=== PATIENT | male | born 1985 | race Hispanic/Latino ===

== ENCOUNTER 2023-12-21 14:54 | Inpatient (IN) | payer MEDICAID, SELFPAY ==
[~2023-12-21 14:54] MED LIST: Iopamidol-370 76% 500 ML MDV (1 ML CHARGE) ONE
[2023-12-21 16:11] LABS: #Basophils 0.03 10x3/uL (0.0-0.2); %Basophils 0.5 % (0.0-1.0); %Eosinophils 0.5 % (0.0-10.0); %Lymphocytes 30.9 % (21.0-51.0); %Monocytes 10.4 % (0.0-10.0); %Neutrophils 57.2 % (42.0-75.0); Hematocrit 12.3 % (42.0-52.0); Hemoglobin 3.7 g/dL (14.0-18.0); Mean Corpuscular HGB CONC 30.1 g/dL (32.0-36.0); Mean Corpuscular Hemoglobin 26.6 pg (27.0-31.0); Mean Corpuscular Volume 88.5 fL (78.0-98.0); Mean Platelet Volume 10.4 fL (7.4-10.4); Platelet Count 105 10x3/uL (130-400); RBC Distribution Width 21.9 % (11.5-14.5); Red Blood Cell (RBC) Count 1.39 mill/uL (4.70-6.10)
[2023-12-21 16:20] LABS: ALT (SGPT) 12 U/L (8-55); AST (SGOT) 47 U/L (5-34); Albumin 2.2 g/dL (3.5-5.0); Alkaline Phosphatase 82 U/L (40-110); Anion Gap 12 mmol/L (10-20); BUN (Urea Nitrogen) 11 mg/dL (8.9-20.6); Bilirubin, Total 2.6 mg/dL (0.2-1.2); Calc. Creatinine Clearance 0 mL/min (70-130); Calcium 7.6 mg/dL (7.8-10.44); Carbon Dioxide 20 mmol/L (22-29); Chloride 104 mmol/L (98-107); Estimated GFR 129; Globulin 4.3 g/dL (2.4-3.5); Glucose 121 mg/dL (70-105); Lipase 43 U/L (8-78); Potassium 3.8 mmol/L (3.5-5.1); Protein, Total 6.5 g/dL (6.0-8.3); Sodium 132 mmol/L (136-145)
[2023-12-21 16:22] LABS: Acetaminophen Less than 10 mcg/mL (Less than 10); Alcohol 132.6 mg/dL (Less than 10); Salicylate Less than 8.0 mg/dL (Less than 8.0)
[2023-12-21 16:27] LABS: INR-International Normal Ratio 1.8; Prothrombin Time 20.9 sec (12.0-14.7)
[2023-12-21 16:28] LABS: PTT 44.7 sec (22.9-36.1)
[2023-12-21] MEDS ORDERED: Pantoprazole 40 MG VIAL ONE (17:27)
[2023-12-21] MEDS ORDERED: Sodium Chloride 0.9% 100 ML ONE (17:27)
[2023-12-21] MEDS ORDERED: cefTRIAXone (ROCEPHIN) 1 GM VIAL ONE (17:27)
[2023-12-21] MEDS ORDERED: Ondansetron PF 4 MG/2 ML Vial ONE ×2 (17:27→19:52)
[2023-12-21] MEDS ORDERED: Etomidate 40 MG (20 mL) VIAL ONE (17:56)
[2023-12-21] MEDS ORDERED: Pantoprazole 80 MG, Admixture Fee 1 EACH in Sodium Chloride 0.9% 100 ML IVPB SCH (18:00)
[2023-12-21] MEDS ORDERED: SUCCINYLCHOLINE/SOD CL,ISO/PF 200 MG/10 ML SYRINGE FS ONE (18:24)
[2023-12-21] MEDS ORDERED: PROPOFOL 20 ML ONE ×2 (18:25→18:42)
[2023-12-21] MEDS ORDERED: Midazolam HCl 2 mg/2 ml Vial ONE (18:56)
[2023-12-21 19:48] LABS: #Basophils 0.05 10x3/uL (0.0-0.2); #Eosinphils Less than 0.03 10x3/uL (0.0-0.7); %Eosinophils 0.2 % (0.0-10.0); %Lymphocytes 25.3 % (21.0-51.0); %Monocytes 10.5 % (0.0-10.0); %Neutrophils 61.2 % (42.0-75.0); Hematocrit 18.2 % (42.0-52.0); Hemoglobin 5.5 g/dL (14.0-18.0); Mean Corpuscular HGB CONC 30.2 g/dL (32.0-36.0); Mean Corpuscular Hemoglobin 27.5 pg (27.0-31.0); Mean Platelet Volume 9.8 fL (7.4-10.4); Platelet Count 90 10x3/uL (130-400); RBC Distribution Width 18.6 % (11.5-14.5)
[2023-12-21 20:11] LABS: ALT (SGPT) 11 U/L (8-55); AST (SGOT) 47 U/L (5-34); Alkaline Phosphatase 73 U/L (40-110); Anion Gap 10 mmol/L (10-20); BUN (Urea Nitrogen) 10 mg/dL (8.9-20.6); Bilirubin, Total 2.9 mg/dL (0.2-1.2); Calc. Creatinine Clearance 0 mL/min (70-130); Calcium 7.1 mg/dL (7.8-10.44); Carbon Dioxide 19 mmol/L (22-29); Chloride 108 mmol/L (98-107); Estimated GFR 132; Globulin 3.8 g/dL (2.4-3.5); Glucose 92 mg/dL (70-105); Potassium 3.8 mmol/L (3.5-5.1); Protein, Total 5.8 g/dL (6.0-8.3); Sodium 133 mmol/L (136-145)
[2023-12-21 20:19] LABS: Macrocytosis SLIGHT = 6-15 cells HPF (0-5); Platelet Adequacy Comment Platelets Decreased; Polychromasia MODERATE = 3-4 cells HPF (0-2)
[2023-12-21] MEDS: Lactated Ringer's 1,000 ML IV SCH (22:15)
[2023-12-21] MEDS ORDERED: Acetaminophen 650 MG Suppository PR PRN (23:21)
[2023-12-21] MEDS ORDERED: Ondansetron PF 4 MG/2 ML Vial IVP PRN (23:21)
[2023-12-21] MEDS ORDERED: Lorazepam 1 MG TAB PO PRN (23:24)
[2023-12-21] MEDS ORDERED: Lorazepam 2 MG/ML VIAL IM PRN (23:24)
[2023-12-21] MEDS ORDERED: Electrolyte Replacement Protocol 1 EACH FS PRN (23:30)
[2023-12-22] MEDS: Octreotide Acetate 50 MCG/ML AMP SLOW IVP SCH (02:23)
[2023-12-22] MEDS: Thiamine 100 MG TAB PO SCH ×2 (02:23→09:08)
[2023-12-22 02:30] LABS: #Basophils 0.06 10x3/uL (0.0-0.2); %Basophils 1.2 % (0.0-1.0); %Eosinophils 2.2 % (0.0-10.0); %Lymphocytes 27.3 % (21.0-51.0); %Monocytes 11.8 % (0.0-10.0); %Neutrophils 57.5 % (42.0-75.0); Hematocrit 20.1 % (42.0-52.0); Hemoglobin 6.6 g/dL (14.0-18.0); Mean Corpuscular HGB CONC 32.5 g/dL (32.0-36.0); Mean Corpuscular Volume 86.2 fL (78.0-98.0); Mean Platelet Volume 9.7 fL (7.4-10.4); Platelet Count 73 10x3/uL (130-400); RBC Distribution Width 18.4 % (11.5-14.5); Red Blood Cell (RBC) Count 2.32 mill/uL (4.70-6.10)
[2023-12-22 02:32] LABS: INR-International Normal Ratio 1.9; Prothrombin Time 21.5 sec (12.0-14.7)
[2023-12-22 02:51] LABS: ALT (SGPT) 14 U/L (8-55); AST (SGOT) 68 U/L (5-34); Albumin 1.9 g/dL (3.5-5.0); Alkaline Phosphatase 68 U/L (40-110); Anion Gap 11 mmol/L (10-20); BUN (Urea Nitrogen) 11 mg/dL (8.9-20.6); Bilirubin, Total 4.8 mg/dL (0.2-1.2); Calc. Creatinine Clearance 214 mL/min (70-130); Calcium 7.1 mg/dL (7.8-10.44); Carbon Dioxide 19 mmol/L (22-29); Chloride 109 mmol/L (98-107); Estimated GFR 130; Globulin 3.6 g/dL (2.4-3.5); Glucose 95 mg/dL (70-105); Lipase 31 U/L (8-78); Potassium 3.8 mmol/L (3.5-5.1); Protein, Total 5.5 g/dL (6.0-8.3); Sodium 135 mmol/L (136-145)
[2023-12-22] MEDS: Morphine 4 MG/ML VIAL SLOW IVP SCH (04:47)
[2023-12-22] MEDS: Lidocaine 2% Viscous Solution 10 ML, Aluminum & Magnesium Hydroxide 30 ML SSW SCH (04:48)
[2023-12-22 08:22] LABS: Hematocrit 23.4 % (42.0-52.0); Hemoglobin 7.7 g/dL (14.0-18.0)
[2023-12-22] MEDS: Folic Acid 1 MG TAB PO SCH (09:07)
[2023-12-22] MEDS: Multivit, Therapeutic 1 TAB PO SCH (09:07)
[2023-12-22] MEDS: Multivit, Chewable SF 1 TAB PO SCH (09:08)
[2023-12-22] MEDS: Pantoprazole 40 MG VIAL IVP SCH (09:08)
[2023-12-22] MEDS: Bacitracin 1 PK TOP SCH (15:34)
[2023-12-22 16:27] LABS: Hematocrit 26.5 % (42.0-52.0); Hemoglobin 8.6 g/dL (14.0-18.0)
[2023-12-22] MEDS: prednisoLONE 15 MG/5 ML UDCUP PO SCH (16:48)
[2023-12-22] MEDS: prednisoLONE 10 MG ODT TAB PO SCH (16:51)
[2023-12-22] MEDS: Octreotide Acetate 1,250 MCG in Sodium Chloride 0.9% 250 ML 250 ML IVPB SCH (17:35)
[2023-12-22] MEDS: cefTRIAXone\\ROCEPHIN 1 GM in Sodium Chloride 0.9% 100 ML IVPB SCH (17:35)
[2023-12-22] MEDS ORDERED: Lorazepam 1 MG TAB PO PRN (23:24)
[2023-12-23] MEDS ORDERED: prednisoLONE 10 MG ODT TAB PO SCH (08:00)
[2023-12-23 08:45] LABS: #Basophils 0.03 10x3/uL (0.0-0.2); #Eosinphils Less than 0.03 10x3/uL (0.0-0.7); %Basophils 0.4 % (0.0-1.0); %Lymphocytes 19.7 % (21.0-51.0); %Monocytes 8.2 % (0.0-10.0); %Neutrophils 71.1 % (42.0-75.0); Hematocrit 26.7 % (42.0-52.0); Hemoglobin 8.8 g/dL (14.0-18.0); Mean Corpuscular Hemoglobin 27.8 pg (27.0-31.0); Mean Corpuscular Volume 84.5 fL (78.0-98.0); Platelet Count 90 10x3/uL (130-400); RBC Distribution Width 18.9 % (11.5-14.5); Red Blood Cell (RBC) Count 3.16 mill/uL (4.70-6.10)
[2023-12-23 08:50] LABS: INR-International Normal Ratio 1.9; Prothrombin Time 22.1 sec (12.0-14.7)
[2023-12-23 09:03] LABS: ALT (SGPT) 18 U/L (8-55); AST (SGOT) 71 U/L (5-34); Alkaline Phosphatase 80 U/L (40-110); Anion Gap 8 mmol/L (10-20); BUN (Urea Nitrogen) 8 mg/dL (8.9-20.6); Bilirubin, Total 2.7 mg/dL (0.2-1.2); Calc. Creatinine Clearance 189 mL/min (70-130); Calcium 7.5 mg/dL (7.8-10.44); Carbon Dioxide 22 mmol/L (22-29); Chloride 104 mmol/L (98-107); Estimated GFR 125; Globulin 4.2 g/dL (2.4-3.5); Glucose 110 mg/dL (70-105); Magnesium 1.6 mg/dL (1.6-2.6); Potassium 3.5 mmol/L (3.5-5.1); Protein, Total 6.2 g/dL (6.0-8.3); Sodium 130 mmol/L (136-145)
[2023-12-23] MEDS: Potassium Chloride 20 MEQ TAB PO SCH (09:13)
[2023-12-23] MEDS: Magnesium 2 GM/50 ML(in water) 2 GM in Premix 1 BAG IVPB SCH (09:13)
[2023-12-23] MEDS: prednisoLONE 15 MG/5 ML UDCUP PO SCH (10:13)
[2023-12-23] MEDS ORDERED: Lorazepam 1 MG TAB PO PRN (23:24)
[2023-12-24 10:28] LABS: #Basophils 0.05 10x3/uL (0.0-0.2); %Basophils 0.6 % (0.0-1.0); %Eosinophils 0.9 % (0.0-10.0); %Lymphocytes 21.6 % (21.0-51.0); %Monocytes 11.2 % (0.0-10.0); %Neutrophils 65.2 % (42.0-75.0); Hematocrit 25.3 % (42.0-52.0); Hemoglobin 8.1 g/dL (14.0-18.0); Mean Corpuscular Hemoglobin 28.1 pg (27.0-31.0); Mean Corpuscular Volume 87.8 fL (78.0-98.0); Platelet Count 95 10x3/uL (130-400); RBC Distribution Width 20.3 % (11.5-14.5); Red Blood Cell (RBC) Count 2.88 mill/uL (4.70-6.10)
[2023-12-24 10:38] LABS: ALT (SGPT) 22 U/L (8-55); AST (SGOT) 69 U/L (5-34); Albumin 1.9 g/dL (3.5-5.0); Alkaline Phosphatase 121 U/L (40-110); Anion Gap 10 mmol/L (10-20); BUN (Urea Nitrogen) 8 mg/dL (8.9-20.6); Calc. Creatinine Clearance 206 mL/min (70-130); Calcium 7.3 mg/dL (7.8-10.44); Carbon Dioxide 21 mmol/L (22-29); Chloride 105 mmol/L (98-107); Estimated GFR 129; Globulin 3.9 g/dL (2.4-3.5); Glucose 109 mg/dL (70-105); Magnesium 1.7 mg/dL (1.6-2.6); Potassium 3.5 mmol/L (3.5-5.1); Protein, Total 5.8 g/dL (6.0-8.3); Sodium 132 mmol/L (136-145)
[2023-12-24] MEDS: Magnesium 2 GM/50 ML(in water) 2 GM in Premix 1 BAG IVPB SCH (13:58)
[2023-12-24] MEDS: Potassium Chloride 20 MEQ TAB PO SCH (13:58)
[2023-12-24 14:25] LABS: Hemoglobin 8.5 g/dL (14.0-18.0); Platelet Count 100 10x3/uL (130-400)
[2023-12-24 16:53] VITALS: TEMP 97
[2023-12-24] MEDS ORDERED: Lorazepam 0.5 MG TAB PO PRN (23:24)
== END 2023-12-24 18:57 | disposition home or self-care (01) | DRG 441 ==
LOC: ERS 14:54 → SDC/OP 18:21 → IMCU/EMU 19:39
PROVIDERS: ADMIT Internal Medicine; ATTEND Family Medicine
PROC: 0DJ08ZZ Inspection of Upper Intestinal Tract, Via Natural or Artificial Opening Endoscopic (ICD-10-PCS; principal; 2023-12-21)
PROC: 30233N1 Transfusion of Nonautologous Red Blood Cells into Peripheral Vein, Percutaneous Approach (ICD-10-PCS; 2023-12-21)
DX: K76.6 Portal hypertension (principal); I85.11 Secondary esophageal varices with bleeding; D62 Acute posthemorrhagic anemia; F10.139 Alcohol abuse with withdrawal, unspecified; K70.10 Alcoholic hepatitis without ascites; K70.30 Alcoholic cirrhosis of liver without ascites; D69.6 Thrombocytopenia, unspecified; W19.XXXA Unspecified fall, initial encounter; K31.89 Other diseases of stomach and duodenum; G47.33 Obstructive sleep apnea (adult) (pediatric); Z71.41 Alcohol abuse counseling and surveillance of alcoholic; E80.6 Other disorders of bilirubin metabolism
CPT/HCPCS: 36415; 36430; 71260; 74177; 80053; 80307; 83690; 83735; 85025; 85610; 85730; 86850; 86900; 86901; 93005; J0696; J2250; J2272; J2354; J2405; J2470; J2704; J3475; J7050; J7120; J7510; P9016; Q9967

== ENCOUNTER 2024-03-13 20:10 | Inpatient (IN) | payer SELFPAY ==
[2024-03-13 20:56] LABS: #Basophils 0.05 10x3/uL (0.0-0.2); %Basophils 0.9 % (0.0-1.0); %Eosinophils 1.7 % (0.0-10.0); %Lymphocytes 41.5 % (21.0-51.0); %Monocytes 13.1 % (0.0-10.0); %Neutrophils 42.4 % (42.0-75.0); Hematocrit 23.2 % (42.0-52.0); Hemoglobin 6.1 g/dL (14.0-18.0); Mean Corpuscular HGB CONC 26.3 g/dL (32.0-36.0); Mean Corpuscular Hemoglobin 20.1 pg (27.0-31.0); Mean Corpuscular Volume 76.6 fL (78.0-98.0); Mean Platelet Volume 9.1 fL (7.4-10.4); Platelet Count 123 10x3/uL (130-400); RBC Distribution Width 23.3 % (11.5-14.5); Red Blood Cell (RBC) Count 3.03 mill/uL (4.70-6.10)
[2024-03-13 21:08] LABS: ALT (SGPT) 28 U/L (8-55); AST (SGOT) 79 U/L (5-34); Albumin 2.1 g/dL (3.5-5.0); Alkaline Phosphatase 107 U/L (40-110); Anion Gap 9 mmol/L (10-20); BUN (Urea Nitrogen) 5 mg/dL (8.9-20.6); Bilirubin, Total 3.7 mg/dL (0.2-1.2); Calc. Creatinine Clearance 0 mL/min (70-130); Calcium 7.3 mg/dL (7.8-10.44); Carbon Dioxide 24 mmol/L (22-29); Chloride 108 mmol/L (98-107); Estimated GFR 135; Globulin 4.7 g/dL (2.4-3.5); Glucose 123 mg/dL (70-105); Lipase 36 U/L (8-78); Potassium 3.8 mmol/L (3.5-5.1); Protein, Total 6.8 g/dL (6.0-8.3); Sodium 137 mmol/L (136-145)
[2024-03-13 21:09] LABS: INR-International Normal Ratio 2.8; Prothrombin Time 29.4 sec (12.0-14.7)
[2024-03-13 21:09] LABS: Bacteria/HPF None Seen HPF (None Seen); Bilirubin 2+ (Negative); Blood, Urine 2+ (Negative); CAUTI Indications for Culture Pelvic or flank pain; Clarity Clear (Clear); Glucose, Urine (Dipstick) 30 mg/dL (Negative); Ketone, Urine Negative (Negative); Leukocyte Negative Leu/uL (Negative); Nitrite Negative (Negative); Protein, Urine (Dipstick) 300 mg/dL (Neg-Trace); RBC/HPF 21-50 HPF (0-3); Specific Gravity, Urine 1.028 (1.002-1.036); Squamous Epithelial None Seen HPF (0-3); Urobilinogen Greater than 12 mg/dL (Less than 2); WBC/HPF 0-3 HPF (0-3)
[2024-03-13 21:10] LABS: PTT 54.5 sec (22.9-36.1)
[2024-03-13 21:11] LABS: Urine Culture Reflex No No
[2024-03-13 21:14] LABS: Troponin I Less than 0.010 ng/mL (< 0.028)
[2024-03-13 21:34] LABS: Anisocytosis SLIGHT = 6-15 cells HPF (0-5); Hypochromia SLIGHT = 6-15 cells HPF (0-5); Macrocytosis SLIGHT = 6-15 cells HPF (0-5); Platelet Adequacy Comment Platelets Decreased; Polychromasia MODERATE = 3-4 cells HPF (0-2); Schistocytes SLIGHT = 2-5 cells HPF (0-1); Target Cells SLIGHT = 2-5 cells HPF (0-1)
[2024-03-13] MEDS ORDERED: Pantoprazole 40 MG VIAL ONE (22:09)
[2024-03-13] MEDS ORDERED: cefTRIAXone (ROCEPHIN) 2 GM VIAL ONE (22:09)
[2024-03-13] MEDS ORDERED: Sodium Chloride 0.9% 100 ML ONE (22:10)
[2024-03-13] MEDS ORDERED: Calcium Carbonate 500 MG ChewTAB PO PRN (22:23)
[2024-03-13] MEDS ORDERED: Ondansetron ODT 4 MG TAB PO PRN (22:23)
[2024-03-13] MEDS ORDERED: Acetaminophen 650 MG Suppository PR PRN (22:23)
[2024-03-13] MEDS ORDERED: Ondansetron PF 4 MG/2 ML Vial IVP PRN (22:23)
[2024-03-13] MEDS ORDERED: Lorazepam 1 MG TAB PO PRN (22:29)
[2024-03-13] MEDS ORDERED: Lorazepam 2 MG/ML VIAL IM PRN (22:29)
[2024-03-13] MEDS ORDERED: Electrolyte Replacement Protocol 1 EACH FS PRN (22:30)
[2024-03-13] MEDS ORDERED: Octreotide Acetate 1,250 MCG in Sodium Chloride 0.9% 250 ML 250 ML IVPB SCH (22:30)
[2024-03-13] MEDS ORDERED: Octreotide Acetate 500 MCG/ML VIAL ONE ×2 (23:08→23:27)
[2024-03-14 01:35] LABS: RBC Count-Automated (BF) 1301 /cu.mm; WBC/Nucleated-Auto (BF) 91 /cu.mm
[2024-03-14 01:36] LABS: Body Fluid Source Ascites Body Fluid; Tube # 1
[2024-03-14 01:37] LABS: BF Color Yellow; Clarity Hazy (Clear)
[2024-03-14 02:12] LABS: BF Segmented Neutrophils 1 %; Cell Count Non Hematic 54 %; Lymphocytes 45 %
[2024-03-14 03:32] VITALS: BMI 26.0
[2024-03-14] MEDS ORDERED: Thiamine HCl 200 MG/2 ML VIAL ONE (04:41)
[2024-03-14] MEDS ORDERED: Acetaminophen 325 MG TAB ONE (04:41)
[2024-03-14] MEDS: Acetaminophen 325 MG TAB PO SCH (04:59)
[2024-03-14] MEDS: Thiamine HCl 200 MG/2 ML VIAL SLOW IVP SCH (05:20)
[2024-03-14 05:50] LABS: #Basophils 0.05 10x3/uL (0.0-0.2); %Basophils 1.1 % (0.0-1.0); %Eosinophils 2.2 % (0.0-10.0); %Lymphocytes 45.5 % (21.0-51.0); %Monocytes 13.2 % (0.0-10.0); %Neutrophils 37.8 % (42.0-75.0); Hematocrit 21.5 % (42.0-52.0); Mean Corpuscular HGB CONC 27.9 g/dL (32.0-36.0); Mean Corpuscular Hemoglobin 21.2 pg (27.0-31.0); Mean Platelet Volume 9.7 fL (7.4-10.4); Platelet Count 100 10x3/uL (130-400); RBC Distribution Width 22.2 % (11.5-14.5); Red Blood Cell (RBC) Count 2.83 mill/uL (4.70-6.10)
[2024-03-14 06:24] LABS: Anisocytosis SLIGHT = 6-15 cells HPF (0-5); Hypochromia SLIGHT = 6-15 cells HPF (0-5); Platelet Adequacy Comment Platelets Decreased; Polychromasia SLIGHT = 2-3 cells HPF (0-2)
[2024-03-14 06:33] LABS: ALT (SGPT) 23 U/L (8-55); AST (SGOT) 73 U/L (5-34); Albumin 1.8 g/dL (3.5-5.0); Alkaline Phosphatase 80 U/L (40-110); Anion Gap 13 mmol/L (10-20); BUN (Urea Nitrogen) 4 mg/dL (8.9-20.6); Bilirubin, Total 4.4 mg/dL (0.2-1.2); Calc. Creatinine Clearance 214 mL/min (70-130); Calcium 7.3 mg/dL (7.8-10.44); Carbon Dioxide 21 mmol/L (22-29); Chloride 108 mmol/L (98-107); Estimated GFR 134; Glucose 69 mg/dL (70-105); Potassium 4.3 mmol/L (3.5-5.1); Protein, Total 5.8 g/dL (6.0-8.3); Sodium 138 mmol/L (136-145)
[2024-03-14 08:33] LABS: Hemoglobin 6.3 g/dL (14.0-18.0)
[2024-03-14] MEDS ORDERED: Electrolyte Replacement Protocol FS PRN (09:15)
[2024-03-14] MEDS ORDERED: Multivit, Therapeutic 1 TAB ONE (09:37)
[2024-03-14] MEDS ORDERED: Folic Acid 1 MG TAB ONE (09:37)
[2024-03-14] MEDS ORDERED: Famotidine 20 MG TAB ONE (09:37)
[2024-03-14] MEDS ORDERED: Pantoprazole 40 MG VIAL ONE (09:38)
[2024-03-14] MEDS: Famotidine 20 MG TAB PO SCH (10:00)
[2024-03-14] MEDS: Pantoprazole 40 MG VIAL IVP SCH (10:01)
[2024-03-14] MEDS: Multivit, Therapeutic 1 TAB PO SCH (10:01)
[2024-03-14] MEDS: Famotidine/PF 20 mg/2ml Vial SLOW IVP SCH (10:01)
[2024-03-14] MEDS: Folic Acid 1 MG TAB PO SCH (10:01)
[2024-03-14] MEDS ORDERED: predniSONE 20 MG TAB ONE (13:34)
[2024-03-14] MEDS: prednisoLONE 10 MG ODT TAB PO SCH (14:33)
[2024-03-14] MEDS ORDERED: methylPREDNISolone Sod Succ 40 MG VIAL ONE (14:55)
[2024-03-14] MEDS ORDERED: Furosemide 40 MG (4 mL) VIAL ONE (14:55)
[2024-03-14] MEDS: methylPREDNISolone Sod Succ 40 MG VIAL IVP SCH (15:06)
[2024-03-14] MEDS: Furosemide 40 MG (4 mL) VIAL SLOW IVP SCH (15:09)
[2024-03-14] MEDS: Spironolactone 100 MG TAB PO SCH (15:12)
[2024-03-14] MEDS: Phytonadione 10 MG in Sodium Chloride 0.9% 50 ML IVPB SCH (18:21)
[2024-03-14 20:57] LABS: Hematocrit 30.3 % (42.0-52.0); Hemoglobin 8.9 g/dL (14.0-18.0)
[2024-03-14] MEDS: cefTRIAXone\\ROCEPHIN 1 GM in Sodium Chloride 0.9% 100 ML IVPB SCH (23:33)
[2024-03-15 04:53] LABS: INR-International Normal Ratio 2.6; Prothrombin Time 27.6 sec (12.0-14.7)
[2024-03-15 05:07] LABS: #Basophils 0.03 10x3/uL (0.0-0.2); #Eosinophils Less than 0.03 10x3/uL (0.0-0.7); %Basophils 0.6 % (0.0-1.0); %Lymphocytes 25.1 % (21.0-51.0); %Monocytes 10.3 % (0.0-10.0); Hematocrit 28.3 % (42.0-52.0); Hemoglobin 8.5 g/dL (14.0-18.0); Mean Corpuscular Hemoglobin 22.6 pg (27.0-31.0); Mean Corpuscular Volume 75.3 fL (78.0-98.0); Platelet Count 114 10x3/uL (130-400); RBC Distribution Width 19.9 % (11.5-14.5); Red Blood Cell (RBC) Count 3.76 mill/uL (4.70-6.10)
[2024-03-15 05:20] LABS: ALT (SGPT) 24 U/L (8-55); AST (SGOT) 71 U/L (5-34); Alkaline Phosphatase 86 U/L (40-110); Anion Gap 13 mmol/L (10-20); BUN (Urea Nitrogen) 6 mg/dL (8.9-20.6); Bilirubin, Total 6.3 mg/dL (0.2-1.2); Calc. Creatinine Clearance 192 mL/min (70-130); Calcium 7.5 mg/dL (7.8-10.44); Carbon Dioxide 21 mmol/L (22-29); Chloride 103 mmol/L (98-107); Estimated GFR 130; Globulin 4.7 g/dL (2.4-3.5); Glucose 150 mg/dL (70-105); Potassium 3.6 mmol/L (3.5-5.1); Protein, Total 6.7 g/dL (6.0-8.3); Sodium 133 mmol/L (136-145)
[2024-03-15] MEDS: Furosemide 40 MG (4 mL) VIAL SLOW IVP SCH (05:55)
[2024-03-15] MEDS: Lorazepam 1 MG TAB PO PRN (06:01)
[2024-03-15] MEDS ORDERED: prednisoLONE 10 MG ODT TAB PO SCH (08:00)
[2024-03-15] MEDS: FLUoxetine HCl 10 MG CAP PO SCH (10:00)
[2024-03-15] MEDS: Spironolactone 100 MG TAB PO SCH (10:00)
[2024-03-15] MEDS: methylPREDNISolone Sod Succ 40 MG VIAL IVP SCH (10:01)
[2024-03-15] MEDS: Potassium Chloride 20 MEQ TAB PO SCH (10:25)
[2024-03-15] MEDS: Phytonadione 10 MG in Sodium Chloride 0.9% 50 ML IVPB SCH (12:57)
[2024-03-15] MEDS: Albumin 25% 25 GM (100 mL) BOT IVPB SCH (17:45)
[2024-03-15] MEDS ORDERED: Lorazepam 1 MG TAB PO PRN (22:29)
[2024-03-16 04:21] LABS: #Basophils 0.03 10x3/uL (0.0-0.2); %Basophils 0.5 % (0.0-1.0); %Eosinophils 2.1 % (0.0-10.0); %Lymphocytes 26.4 % (21.0-51.0); %Monocytes 9.7 % (0.0-10.0); Hematocrit 24.6 % (42.0-52.0); Hemoglobin 7.3 g/dL (14.0-18.0); Mean Corpuscular HGB CONC 29.7 g/dL (32.0-36.0); Mean Corpuscular Hemoglobin 22.5 pg (27.0-31.0); Mean Corpuscular Volume 75.7 fL (78.0-98.0); Platelet Count 90 10x3/uL (130-400); RBC Distribution Width 20.5 % (11.5-14.5); Red Blood Cell (RBC) Count 3.25 mill/uL (4.70-6.10)
[2024-03-16 04:40] LABS: Phosphorus 3.5 mg/dL (2.3-4.7)
[2024-03-16 04:43] LABS: INR-International Normal Ratio 2.9; Prothrombin Time 30.7 sec (12.0-14.7)
[2024-03-16 04:44] LABS: Immunoglob - G (Total IgG) 2467 mg/dL (540-1822); Immunoglob - M (Total IgM) 74 mg/dL (22-240)
[2024-03-16 04:46] LABS: ALT (SGPT) 17 U/L (8-55); AST (SGOT) 45 U/L (5-34); Albumin 2.4 g/dL (3.5-5.0); Alkaline Phosphatase 81 U/L (40-110); Anion Gap 11 mmol/L (10-20); BUN (Urea Nitrogen) 7 mg/dL (8.9-20.6); Bilirubin, Total 4.9 mg/dL (0.2-1.2); Calc. Creatinine Clearance 199 mL/min (70-130); Calcium 7.6 mg/dL (7.8-10.44); Carbon Dioxide 20 mmol/L (22-29); Chloride 106 mmol/L (98-107); Estimated GFR 131; Globulin 3.7 g/dL (2.4-3.5); Glucose 90 mg/dL (70-105); Iron 26 ug/dL (65-175); Iron Binding Capacity, Total 174 mcg/dL (261-462); Magnesium 1.7 mg/dL (1.6-2.6); Potassium 3.6 mmol/L (3.5-5.1); Protein, Total 6.1 g/dL (6.0-8.3); Sodium 133 mmol/L (136-145)
[2024-03-16 05:05] LABS: HBsAg Index 0.37 S/CO (0-0.99); Hep A IgM AB NONREACTIVE (NonReactive); Hep A IgM S/CO 0.18 S/CO (0-0.79); Hep B Surf Ag NONREACTIVE S/CO (NonReactive); Hep C IgG Ab NONREACTIVE S/CO (NonReactive); Hepatitis B Core IgM Abs NONREACTIVE S/CO (NonReactive)
[2024-03-16 06:32] LABS: Hep C Index 0.18 S/CO (0-0.79)
[2024-03-16] MEDS ORDERED: FLU (Fluarix Triv) TS24-25(6MOS UP)/PF 45 MCG/0.5 ML Syringe IM ONE (09:00)
[2024-03-16] MEDS: Potassium Chloride 20 MEQ TAB PO SCH (09:45)
[2024-03-16] MEDS: Pantoprazole 40 MG VIAL IVP SCH (09:45)
[2024-03-16] MEDS: Phytonadione 10 MG in Sodium Chloride 0.9% 50 ML IVPB SCH (09:46)
[2024-03-16] MEDS: Magnesium 2 GM/50 ML(in water) 2 GM in Premix 1 BAG IVPB SCH (09:47)
[2024-03-16] MEDS: Sodium Ferric Gluconate 250 MG in Sodium Chloride 0.9% 250 ML 250 ML IVPB SCH (11:40)
[2024-03-16] MEDS: Furosemide 40 MG (4 mL) VIAL SLOW IVP SCH (11:45)
[2024-03-16 19:15] LABS: Hematocrit 29.1 % (42.0-52.0); Hemoglobin 8.8 g/dL (14.0-18.0)
[2024-03-16] MEDS ORDERED: Lorazepam 0.5 MG TAB PO PRN (22:29)
[2024-03-16] MEDS: Thiamine 100 MG TAB PO SCH (23:27)
[2024-03-17 04:25] LABS: Prothrombin Time 31.3 sec (12.0-14.7)
[2024-03-17 04:28] LABS: ALT (SGPT) 18 U/L (8-55); AST (SGOT) 44 U/L (5-34); Albumin 2.7 g/dL (3.5-5.0); Alkaline Phosphatase 92 U/L (40-110); Anion Gap 12 mmol/L (10-20); BUN (Urea Nitrogen) 8 mg/dL (8.9-20.6); Bilirubin, Total 4.6 mg/dL (0.2-1.2); Calc. Creatinine Clearance 202 mL/min (70-130); Calcium 7.7 mg/dL (7.8-10.44); Carbon Dioxide 18 mmol/L (22-29); Chloride 105 mmol/L (98-107); Estimated GFR 132; Globulin 3.7 g/dL (2.4-3.5); Glucose 87 mg/dL (70-105); Magnesium 1.9 mg/dL (1.6-2.6); Potassium 3.6 mmol/L (3.5-5.1); Protein, Total 6.4 g/dL (6.0-8.3); Sodium 131 mmol/L (136-145)
[2024-03-17 04:44] LABS: #Basophils 0.03 10x3/uL (0.0-0.2); %Basophils 0.4 % (0.0-1.0); %Eosinophils 0.4 % (0.0-10.0); %Lymphocytes 25.5 % (21.0-51.0); %Monocytes 10.4 % (0.0-10.0); %Neutrophils 62.9 % (42.0-75.0); Hematocrit 28.2 % (42.0-52.0); Hemoglobin 8.4 g/dL (14.0-18.0); Mean Corpuscular HGB CONC 29.8 g/dL (32.0-36.0); Mean Corpuscular Hemoglobin 23.3 pg (27.0-31.0); Mean Corpuscular Volume 78.1 fL (78.0-98.0); Platelet Count 83 10x3/uL (130-400); Red Blood Cell (RBC) Count 3.61 mill/uL (4.70-6.10)
[2024-03-17] MEDS: Spironolactone 100 MG TAB PO SCH (08:37)
[2024-03-17] MEDS: Furosemide 40 MG (4 mL) VIAL SLOW IVP SCH (08:37)
[2024-03-17] MEDS: Magnesium 2 GM/50 ML(in water) 2 GM in Premix 1 BAG IVPB SCH (08:38)
[2024-03-17 12:06] LABS: ANA Symphony (Qualitative) Negative (Negative); ANA Symphony (Quantitative) 0.4 Ratio (< 0.7 Negative); EliA Vaculitis New Method **** NEW METHOD ****; Mitochondrial Ab 1.4 U/mL (<4 Negative); dsDNA IgG Antibody 1.5 IU/mL (<10 Negative)
[2024-03-18 04:27] LABS: #Basophils Less than 0.03 10x3/uL (0.0-0.2); #Eosinophils Less than 0.03 10x3/uL (0.0-0.7); %Basophils 0.2 % (0.0-1.0); %Eosinophils 0.2 % (0.0-10.0); %Lymphocytes 23.5 % (21.0-51.0); %Monocytes 8.7 % (0.0-10.0); %Neutrophils 67.2 % (42.0-75.0); Hematocrit 31.3 % (42.0-52.0); Hemoglobin 9.2 g/dL (14.0-18.0); Mean Corpuscular HGB CONC 29.4 g/dL (32.0-36.0); Mean Corpuscular Hemoglobin 23.5 pg (27.0-31.0); Mean Corpuscular Volume 80.1 fL (78.0-98.0); Platelet Count 82 10x3/uL (130-400); RBC Distribution Width 22.1 % (11.5-14.5); Red Blood Cell (RBC) Count 3.91 mill/uL (4.70-6.10)
[2024-03-18 05:01] LABS: ALT (SGPT) 23 U/L (8-55); AST (SGOT) 47 U/L (5-34); Albumin 2.6 g/dL (3.5-5.0); Alkaline Phosphatase 101 U/L (40-110); Anion Gap 12 mmol/L (10-20); BUN (Urea Nitrogen) 8 mg/dL (8.9-20.6); Bilirubin, Total 4.1 mg/dL (0.2-1.2); Calc. Creatinine Clearance 194 mL/min (70-130); Calcium 7.9 mg/dL (7.8-10.44); Carbon Dioxide 19 mmol/L (22-29); Chloride 104 mmol/L (98-107); Estimated GFR 130; Globulin 3.9 g/dL (2.4-3.5); Glucose 83 mg/dL (70-105); Potassium 3.6 mmol/L (3.5-5.1); Protein, Total 6.5 g/dL (6.0-8.3); Sodium 131 mmol/L (136-145)
[2024-03-18] MEDS: Pantoprazole DR 40 MG TAB PO SCH (08:29)
[2024-03-18] MEDS: Furosemide 40 MG TAB PO SCH (08:29)
[2024-03-18 11:43] VITALS: BP 157/83; TEMP 98.7
== END 2024-03-18 13:55 | disposition home or self-care (01) | DRG 812 ==
LOC: ERS 20:10 → ERHOLD 22:23 → 2NO 03-14 17:51
PROVIDERS: ADMIT Student in an Organized Health Care Education/Training Program; ATTEND Family Medicine
PROC: 30233N1 Transfusion of Nonautologous Red Blood Cells into Peripheral Vein, Percutaneous Approach (ICD-10-PCS; principal; 2024-03-14)
DX: D64.9 Anemia, unspecified (principal); K70.31 Alcoholic cirrhosis of liver with ascites; F10.20 Alcohol dependence, uncomplicated; Z71.41 Alcohol abuse counseling and surveillance of alcoholic; F41.9 Anxiety disorder, unspecified; F32.A Depression, unspecified; D69.6 Thrombocytopenia, unspecified; K72.10 Chronic hepatic failure without coma; K70.11 Alcoholic hepatitis with ascites; Z79.899 Other long term (current) drug therapy
CPT/HCPCS: 36415; 36430; 49083; 71045; 74177; 80053; 80074; 81001; 82103; 82105; 82140; 82390; 82728; 82945; 83516; 83540; 83550; 83615; 83690; 83735; 83880; 84100; 84157; 84484; 85025; 85060; 85610; 85730; 86015; 86038; 86225; 86850; 86900; 86901; 87070; 87205; 89051; 93005; 96365; 96375; 96376; J0696; J1940; J2354; J2470; J2916; J2919; J3411; J3430; J3475; J7050; J7512; P9016; P9047; Q9967